=== PATIENT | female | born 1965 | race Caucasian/White ===

== ENCOUNTER 2018-11-18 18:58 | Emergency (ER) | payer MEDICAID ==
[~2018-11-18] VITALS: Ht 167.6 cm; Wt 85.0 kg
[2018-11-18 18:59] VITALS: BP 118/72
[2018-11-18] MEDS ORDERED: diphenhydrAMINE 25mg capsule PO ONE (19:10)
[2018-11-18] MEDS ORDERED: CEPH-571 PO (19:35)
== END 2018-11-18 19:43 | disposition home or self-care (01) ==
LOC: ER 18:59
DX: T63.441A Toxic effect of venom of bees, accidental (unintentional), initial encounter (principal); J45.909 Unspecified asthma, uncomplicated; Z88.2 Allergy status to sulfonamides; Z79.2 Long term (current) use of antibiotics; Y92.89 Other specified places as the place of occurrence of the external cause
CPT/HCPCS: 99283; Q0163